=== PATIENT | female | born 1990 | race Caucasian/White ===

== ENCOUNTER 2018-07-17 18:59 | Emergency (ER) | payer OTHER ==
[~2018-07-17] VITALS: Ht 162.6 cm; Wt 58.5 kg
[2018-07-17] MEDS ORDERED: PRENATAL + DHA1 EAC1 (19:07)
== END 2018-07-17 22:58 | disposition home or self-care (01) ==
LOC: ER 18:59
DX: O21.0 Mild hyperemesis gravidarum (principal); Z34.01 Encounter for supervision of normal first pregnancy, first trimester

== ENCOUNTER 2019-01-26 15:15 | Inpatient (IN) | payer OTHER ==
[~2019-01-26] VITALS: Ht 162.6 cm; Wt 68.9 kg
[~2019-01-26 15:15] MED LIST: PRENATAL + DHA1 EAC1
[2019-02-10] MEDS ORDERED: IRON325 MG PO (09:15)
== END 2019-02-10 11:14 | DRG 807 ==
LOC: OB/GYN 15:15 → LDR 02-08 04:15 → OB/GYN 02-08 11:03
PROVIDERS: ADMIT Specialist
PROC: 10E0XZZ Delivery of Products of Conception, External Approach (ICD-10-PCS; principal; 2019-02-08)
PROC: 0W8NXZZ Division of Female Perineum, External Approach (ICD-10-PCS; 2019-02-08)
PROC: 4A0HXFZ Measurement of Products of Conception, Cardiac Rhythm, External Approach (ICD-10-PCS; 2019-02-08)
PROC: 3E033VJ Introduction of Other Hormone into Peripheral Vein, Percutaneous Approach (ICD-10-PCS; 2019-02-08)
DX: O80 Encounter for full-term uncomplicated delivery (principal); Z37.0 Single live birth; Z3A.39 39 weeks gestation of pregnancy

== ENCOUNTER 2024-12-12 18:00 | Emergency (ER) | payer OTHER ==
[~2024-12-12] VITALS: Ht 162.6 cm; Wt 63.5 kg
[~2024-12-12 18:00] MED LIST changes: +IRON325 MG PO
[2024-12-12] MEDS ORDERED: 0.9 % SODIUM CHLORIDE 1,000 ML IV ONE (19:30)
[2024-12-12] MEDS ORDERED: FAMOtidine 10 MG/ML (4ML VIAL) IV ONE (19:30)
[2024-12-12] MEDS ORDERED: ONDANSETRON HCL 2 MG/ML VIAL IV ONE (19:30)
[2024-12-12 21:04] LABS: HEMATOCRIT 37.5 % (36.0-45.00); HEMOGLOBIN 12.8 g/dL (12.0-15.00); MEAN CELL VOLUME 79.6 fL (80.00-100.00); MEAN CORPUSCULAR HEMOGLOBIN 27.1 pg (27.00-32.0); MEAN CORPUSCULAR HGB CONC 34.1 g/dl (32.0-36.0); PLATELET COUNT 294 K/uL (150-450); RED BLOOD COUNT 4.71 M/uL (4.00-6.00); RED CELL DISTRIBUTION WIDTH 13.6 % (11.5-14.5)
[2024-12-12 21:46] LABS: ALBUMIN 3.3 gm/dL (3.4-5.0); BILIRUBIN TOTAL 0.45 mg/dL (0.3-1.2); CREATININE SERUM 0.67 mg/dL (0.55-1.02); GFR 100.16; GLOBULINA 4.1 G/DL (2.4-3.5); POTASSIUM 3.71 mEq/L (3.5-5.1); TOTAL PROTEIN 7.4 gm/dL (6.4-8.2)
[2024-12-12 23:04] LABS: PH,URINE 6.5 (5.0-8.0); URINE APPEARANCE Cloudy; URINE BILIRRUBIN Small (NEGATIVE); URINE BLOOD Negative; URINE COLOR Dark Yellow; URINE GLUCOSE Negative (NEGATIVE); URINE LEUKOCYTE Moderate; URINE NITRATE Negative; URINE PROTEIN 30 (NEGATIVE)
[2024-12-12 23:09] LABS: URINE BACTERIA 9125.9 uL (0.0-1933); URINE CAST 2.65 uL (0.0-1.40); URINE EPITHELIAL CELLS 75.8 uL (0.0-38.8); URINE RBC 42.5 uL (0.0-20.8); URINE WBC 627.5 uL (0.0-23.2)
[2024-12-12] MEDS ORDERED: ZOFRAN8 MG PO (23:11)
[2024-12-12] MEDS ORDERED: PEPCID AC20 MG PO (23:11)
[2024-12-12 23:19] LABS: URINE KETONE 80 (NEGATIVE); URINE MUCUS HEAVY
== END 2024-12-12 23:38 | disposition home or self-care (01) ==
LOC: ER 18:03
PROVIDERS: General Practice
DX: O21.0 Mild hyperemesis gravidarum (principal); Z3A.08 8 weeks gestation of pregnancy; Z20.822 Contact with and (suspected) exposure to COVID-19

== ENCOUNTER 2025-01-04 17:39 | Emergency (ER) | payer OTHER ==
[~2025-01-04] VITALS: Ht 162.6 cm; Wt 65.8 kg
[~2025-01-04 17:39] MED LIST changes: +PEPCID AC20 MG PO; +ZOFRAN8 MG PO
[2025-01-04 17:52] VITALS: BP 127/80; O2SAT 100
[2025-01-04] MEDS ORDERED: PR NATAL 400 C1 EACH PO (17:52)
[2025-01-04 18:52] LABS: HEMATOCRIT 34.5 % (36.0-45.00); HEMOGLOBIN 11.8 g/dL (12.0-15.00); MEAN CELL VOLUME 81.8 fL (80.00-100.00); MEAN CORPUSCULAR HEMOGLOBIN 27.9 pg (27.00-32.0); MEAN CORPUSCULAR HGB CONC 34.1 g/dl (32.0-36.0); PLATELET COUNT 286 K/uL (150-450); RED BLOOD COUNT 4.22 M/uL (4.00-6.00); RED CELL DISTRIBUTION WIDTH 14.5 % (11.5-14.5)
[2025-01-04 20:45] LABS: PH,URINE 6.5 (5.0-8.0); URINE APPEARANCE Clear; URINE BILIRRUBIN Small (NEGATIVE); URINE BLOOD Negative; URINE COLOR Dark Yellow; URINE GLUCOSE Negative (NEGATIVE); URINE LEUKOCYTE Trace; URINE NITRATE Negative; URINE PROTEIN Trace (NEGATIVE)
[2025-01-04 20:49] LABS: URINE BACTERIA 134.6 uL (0.0-1933); URINE EPITHELIAL CELLS 10.5 uL (0.0-38.8); URINE RBC 8.6 uL (0.0-20.8); URINE WBC 29.5 uL (0.0-23.2)
[2025-01-04 20:51] LABS: URINE CAST 0.44 uL (0.0-1.40); URINE KETONE 40 (NEGATIVE)
[2025-01-04] MEDS ORDERED: AMOX1TAB5 PO (21:01)
[2025-01-04] MEDS ORDERED: MIRALAX17 GM PO (21:01)
== END 2025-01-04 21:49 | disposition home or self-care (01) ==
LOC: ER 17:40
PROVIDERS: General Practice
DX: O26.891 Other specified pregnancy related conditions, first trimester (principal); Z3A.12 12 weeks gestation of pregnancy; R10.2 Pelvic and perineal pain

== ENCOUNTER 2025-03-02 12:45 | Outpatient (CLI) | payer OTHER ==
[~2025-03-02 12:45] MED LIST changes: +AMOX1TAB5 PO; +MIRALAX17 GM PO; +PR NATAL 400 C1 EACH PO
== END 2025-03-02 12:46 | disposition home or self-care (01) ==
LOC: PRENATAL 12:45
PROVIDERS: ATTEND Obstetrics & Gynecology Maternal & Fetal Medicine
DX: O44.00 Complete placenta previa NOS or without hemorrhage, unspecified trimester (principal); Z3A.19 19 weeks gestation of pregnancy

== ENCOUNTER → 2025-04-29 11:50 | Outpatient (CLI) | payer OTHER | END | disposition home or self-care (01) | LOC: PRENATAL 11:50 | PROVIDERS: ATTEND Obstetrics & Gynecology Maternal & Fetal Medicine | DX: O26.849 Uterine size-date discrepancy, unspecified trimester (principal); O36.8199 Decreased fetal movements, unspecified trimester, other fetus; O44.00 Complete placenta previa NOS or without hemorrhage, unspecified trimester; Z3A.27 27 weeks gestation of pregnancy ==

== ENCOUNTER → 2025-05-19 10:56 | Outpatient (CLI) | payer OTHER | END | disposition home or self-care (01) | LOC: PRENATAL 10:56 | PROVIDERS: ATTEND Obstetrics & Gynecology Maternal & Fetal Medicine | DX: O26.849 Uterine size-date discrepancy, unspecified trimester (principal); O36.8199 Decreased fetal movements, unspecified trimester, other fetus; O32.9XX0 Maternal care for malpresentation of fetus, unspecified, not applicable or unspecified; Z3A.29 29 weeks gestation of pregnancy ==

== ENCOUNTER 2025-06-09 13:28 | Outpatient (CLI) | payer OTHER | END 2025-06-09 13:29 | disposition home or self-care (01) | LOC: PRENATAL 13:28 | PROVIDERS: ATTEND Obstetrics & Gynecology Maternal & Fetal Medicine | DX: O26.849 Uterine size-date discrepancy, unspecified trimester (principal); O36.8130 Decreased fetal movements, third trimester, not applicable or unspecified; Z3A.32 32 weeks gestation of pregnancy ==

== ENCOUNTER 2025-06-30 11:14 | Outpatient (CLI) | payer OTHER | END 2025-06-30 11:15 | disposition home or self-care (01) | LOC: PRENATAL 11:14 | PROVIDERS: ATTEND Obstetrics & Gynecology Maternal & Fetal Medicine | DX: O26.849 Uterine size-date discrepancy, unspecified trimester (principal); O36.8130 Decreased fetal movements, third trimester, not applicable or unspecified; O36.5990 Maternal care for other known or suspected poor fetal growth, unspecified trimester, not applicable or unspecified; Z3A.33 33 weeks gestation of pregnancy ==

== ENCOUNTER 2025-07-14 13:00 | Inpatient (IN) | payer OTHER ==
[~2025-07-14] VITALS: Ht 162.6 cm; Wt 73.9 kg
[2025-07-21] VITALS (7 sets, daily range): BP systolic 113–137; BP diastolic 69–96
[2025-07-21] MEDS ORDERED: RINGERS SOLUTION,LACTATED 1,000 ML IV SCH (05:45)
[2025-07-21] MEDS ORDERED: OXYTOCIN 20 UNITS/500ML RL PIGGYBAG IV ONE (06:36)
[2025-07-21] MEDS ORDERED: OXYTOCIN 500 ML IV SCH (07:00)
[2025-07-21 07:13] LABS: BASO % 0.2 % (0.1-1.2); EOS # 0.12 (0.04-0.54); EOS % 1.9 % (0.7-7.0); LYMPH # 1.60 (1.18-3.74); LYMPH % 25.8 % (19.3-53.1); MEAN PLATELET VOLUME 11.80 fl (9.4-12.4); MONO # 0.44 (0.24-0.82); MONO % 7.1 % (4.7-12.5); NEUT # 4.02 (1.56-6.13); NEUT % 64.7 % (34.0-71.1); RED CELL DISTRIBUTION WIDTH 15.0 % (11.6-14.4)
[2025-07-21 07:23] LABS: URINE APPEARANCE Clear; URINE BILIRRUBIN Negative (NEGATIVE); URINE BLOOD Negative; URINE COLOR Yellow; URINE GLUCOSE Negative (NEGATIVE); URINE KETONE Negative (NEGATIVE); URINE LEUKOCYTE Small; URINE NITRATE Negative; URINE PROTEIN Negative (NEGATIVE); URINE UROBILINOGEN 0.2 E.U./dl
[2025-07-21 07:27] LABS: URINE BACTERIA 214.7 uL (0.0-1933); URINE EPITHELIAL CELLS 26.7 uL (0.0-38.8); URINE WBC 31.5 uL (0.0-23.2)
[2025-07-21 07:33] LABS: URINE CAST 0.00 uL (0.0-1.40); URINE RBC 1.6 uL (0.0-20.8)
[2025-07-21 07:41] LABS: INR < 0.93
[2025-07-21 07:57] LABS: ALT/SGPT 11.0 U/L (12-78); AST/SGOT 13.0 U/L (15-37); BILIRUBIN TOTAL 0.3 mg/dL (0.3-1.2); BUN CREA RATIO 7.0 (7.0-25.0); CREATININE SERUM 0.71 mg/dL (0.55-1.02); GFR 93.14; GLOBULINA 3.5 G/DL (2.4-3.5); GLUCOSE FASTING 105.0 mg/dL (65-100); OSMOLALITY SERUM 275.0 MOSM/KG (275-295)
[2025-07-21] MEDS ORDERED: CHLORHEXIDINE GLUCONATE 120 ML BOTTLE TOP ONE ×2 (10:51→11:30)
[2025-07-21] MEDS ORDERED: ERYTHROMYCIN BASE OPHT 1GM EACH TUBE OP ONE ×2 (10:51→11:30)
[2025-07-21] MEDS ORDERED: OXYTOCIN 20 UNITS/1000ML RL PIGGYBAG IV ONE ×2 (10:51→12:47)
[2025-07-21] MEDS ORDERED: LIDOCAINE HCL 1% 10ML VIAL ONE (10:51)
[2025-07-21] MEDS ORDERED: OXYTOCIN 1,000 ML IV SCH (11:30)
[2025-07-21] MEDS ORDERED: ACETAMINOPHEN 500 MG GEL..CAP PO PRN (11:30)
[2025-07-21] MEDS ORDERED: LIDOCAINE HCL 1% 10ML VIAL IJ ONE (11:30)
[2025-07-21] MEDS ORDERED: HYDROCORTISONE 2.5% 30 GM TUBE RECTAL SCH (13:00)
[2025-07-21] MEDS ORDERED: BENZOCAINE/MENTHOL 90 ML BOTTLE TOP SCH (13:00)
[2025-07-22 00:54] VITALS: BP 123/78
[2025-07-22 02:34] LABS: BASO % 0.1 % (0.1-1.2); EOS # 0.11 (0.04-0.54); EOS % 1.1 % (0.7-7.0); LYMPH # 2.14 (1.18-3.74); LYMPH % 21.0 % (19.3-53.1); MEAN PLATELET VOLUME 11.50 fl (9.4-12.4); MONO # 0.91 (0.24-0.82); MONO % 8.9 % (4.7-12.5); NEUT # 7.01 (1.56-6.13); NEUT % 68.6 % (34.0-71.1); RED CELL DISTRIBUTION WIDTH 15.1 % (11.6-14.4)
[2025-07-22 08:00] VITALS: BP 123/75
[2025-07-22] MEDS ORDERED: CEFAZOLIN SODIUM 1,000 MG VIAL ONE (11:15)
[2025-07-22 14:00] VITALS: BP 133/85
[2025-07-22 18:18] VITALS: BP 123/85
[2025-07-23] VITALS: BP 110/73
[2025-07-23 01:19] LABS: BASO % 0.2 % (0.1-1.2); EOS # 0.11 (0.04-0.54); EOS % 1.1 % (0.7-7.0); LYMPH # 2.01 (1.18-3.74); LYMPH % 19.6 % (19.3-53.1); MEAN PLATELET VOLUME 11.30 fl (9.4-12.4); MONO # 0.81 (0.24-0.82); MONO % 7.9 % (4.7-12.5); NEUT # 7.27 (1.56-6.13); NEUT % 71.0 % (34.0-71.1); RED CELL DISTRIBUTION WIDTH 15.3 % (11.6-14.4)
[2025-07-23 08:00] VITALS: BP 117/76
== END 2025-07-23 11:52 | disposition home or self-care (01) | DRG 798 ==
LOC: LDR 07-21 05:31 → OB/GYN 07-21 05:31 → LDR 07-21 13:00 → OB/GYN 07-23 11:52
PROVIDERS: ADMIT Specialist; ATTEND Specialist
PROC: 10E0XZZ Delivery of Products of Conception, External Approach (ICD-10-PCS; principal; 2025-07-21)
PROC: 0UQG7ZZ Repair Vagina, Via Natural or Artificial Opening (ICD-10-PCS; 2025-07-21)
PROC: 4A1HXCZ Monitoring of Products of Conception, Cardiac Rate, External Approach (ICD-10-PCS; 2025-07-21)
PROC: 3E033VJ Introduction of Other Hormone into Peripheral Vein, Percutaneous Approach (ICD-10-PCS; 2025-07-21)
PROC: 0UB70ZZ Excision of Bilateral Fallopian Tubes, Open Approach (ICD-10-PCS; 2025-07-22)
DX: O71.4 Obstetric high vaginal laceration alone (principal); Z37.0 Single live birth; Z30.2 Encounter for sterilization; Z3A.40 40 weeks gestation of pregnancy